=== PATIENT | male | born 1975 | race Caucasian/White ===

== ENCOUNTER 2018-12-23 21:29 | Observation (INO) | payer OTHER ==
[2018-12-23 21:37] VITALS: BMI 24.4
--- NOTE | 2018-12-23 22:01 | ED PDOC ---
Arrival/HPI - General Chief Complaint: Chest Pain Time Seen by Provider: 12/23/18 21:38 Historian: Patient - History of Present Illness Narrative History of Present Illness (Text): 12/23/18 21:58 A 43 year old male, whose past medical history includes hypertension, presents to the emergency department with a complaint of left sided chest discomfort intermittently for the past 3 days. He describes it as a tightness radiating d own the left shoulder arm at times. Patient is a positive smoker. Strong family history of heart disease. Patient denies fevers, chills, headache, dizziness, shortness of breath, dyspnea on exertion, cough, abdominal pain, nausea, vomiting, diarrhea, back pain, neck pain, urinary/bowel changes, or any other complaint. Time/Duration: Other (3 days) Symptom Onset: Sudden Symptom Course: Unchanged Activities at Onset: Rest Context: Home Past Medical History - Provider Review Nursing Documentation Reviewed: Yes - Psychiatric Hx Psychophysiologic Disorder: No Hx Substance Use: No - Anesthesia Hx Anesthesia: No Family/Social History - Physician Review Nursing Documentation Reviewed: Yes Family/Social History: No Known Family HX Smoking Status: Heavy Smoker > 10 Cigarettes Daily Hx Alcohol Use: No Hx Substance Use: No Allergies/Home Meds Allergies/Adverse Reactions: Allergies No Known Allergies Allergy (Verified 12/23/18 21:37) Home Medications: Home Meds Medication Instructions Recorded Confirmed No Known Home Med 12/23/18 12/23/18 Review of Systems - Physician Review All systems were reviewed & negative as marked: Yes - Review of Systems Constitutional: absent: Fevers Respiratory: absent: SOB, Cough Cardiovascular: Chest Pain. absent: GUERRERO Gastrointestinal: absent: Abdominal Pain, Stool Changes, Diarrhea, Nausea, Vomiting Genitourinary Male: absent: Urinary Output Changes Musculoskeletal: absent: Back Pain, Neck Pain Neurological: absent: Headache, Dizziness Physical Exam Vital Signs Reviewed: Yes Vital Signs Temp Pulse Resp BP Pulse Ox 12/23/18 21:39 98.2 F 75 19 151/87 H 100 Temperature: Afebrile Blood Pressure: Hypertensive Pulse: Regular Respiratory Rate: Normal Appearance: Positive for: Well-Appearing, Non-Toxic, Comfortable Pain Distress: None Mental Status: Positive for: Alert and Oriented X 3 - Systems Exam Head: Present: Atraumatic, Normocephalic Pupils: Present: PERRL Extroacular Muscles: Present: EOMI Conjunctiva: Present: Normal Mouth: Present: Moist Mucous Membranes Neck: Present: Normal Range of Motion Respiratory/Chest: Present: Clear to Auscultation, Good Air Exchange. No: Respiratory Distress, Accessory Muscle Use Cardiovascular: Present: Regular Rate and Rhythm, Normal S1, S2. No: Murmurs Abdomen: No: Tenderness, Distention, Peritoneal Signs Back: Present: Normal Inspection Upper Extremity: Present: Normal Inspection. No: Cyanosis, Edema Lower Extremity: Present: Normal Inspection. No: Edema Neurological: Present: GCS=15, CN II-XII Intact, Speech Normal Skin: Present: Warm, Dry, Normal Color. No: Rashes Psychiatric: Present: Alert, Oriented x 3, Normal Insight, Normal Concentration Medical Decision Making ED Course and Treatment: 12/23/18 22:00 Impression: A 43 year old male presents to the emergency department with a complaint of 3 day duration intermittent left sided chest pain. Plan: -- EKG -- Chest X-ray -- Labs -- Aspirin -- Reassess and disposition Prior Visits: Notes and results from previous visits were reviewed. Progress Notes: 12/23/18 22:02: EKG read and interpreted by me shows NSR at 74 BPM. Incomplete RBBB. LAHB. Septal infarct. Non- specific ST- T chanegs. 12/23/18 23:28: Chest X-ray read and interpreted by me shows no acute process. 12/23/18 23:32: Case discussed in detail with chief medical director and Dr. Pantoja (House Doctor) who accept the patient to the hospitalist's service. - Lab Interpretations I have reviewed the lab results: Yes - EKG Interpretation Interpreted by ED Physician: Yes Type: 12 lead EKG - Scribe Statement The provider has reviewed the documentation as recorded by the Scribe Adriana Morales Provider Scribe Attestation: All medical record entries made by the Scribe were at my direction and personally dictated by me. I have reviewed the chart and agree that the record accurately reflects my personal performance of the history, physical exam, medical decision making, and the department course for this patient. I have also personally directed, reviewed, and agree with the discharge instructions and disposition. Disposition/Present on Arrival - Present on Arrival Any Indicators Present on Arrival: No History of DVT/PE: No History of Uncontrolled Diabetes: No Urinary Catheter: No History of Decub. Ulcer: No History Surgical Site Infection Following: None - Disposition Have Diagnosis and Disposition been Completed?: Yes Diagnosis: Chest pain Disposition: HOSPITALIZED Disposition Time: 23:32 Patient Problems: Current Active Problems Problem Status Onset Chest pain Acute Condition: STABLE Discharge Instructions (ExitCare): Chest Pain (ED) Forms: [employer] ([place])
[2018-12-23 22:06] LABS: HEMOGLOBIN 14.1 g/dL (14.0-18.0); MEAN CELL VOLUME 92.2 fl (80.0-105.0); MEAN CORPUSCULAR HEMOGLOBIN 31.3 pg (25.0-35.0); MEAN PLATELET VOLUME 10.4 fl (7.0-11.0); RBC 4.5 10^6/uL (3.5-6.1); RED CELL DISTRIBUTION WIDTH 12.7 % (11.5-14.5); WHITE BLOOD COUNT 6.4 10^3/uL (4.5-11.0)
[2018-12-23 22:16] LABS: INR 1.12; PARTIAL THROMBOPLASTIN TIME 30.7 Seconds (26.9-38.3); PROTHROMBIN TIME 12.4 SECONDS (9.4-12.5)
[2018-12-23 22:32] LABS: TROPONIN I < 0.01 ng/mL
[2018-12-23 22:43] LABS: ALB/GLOB RATIO 1.5 (1.1-1.8); ALBUMIN 4.5 g/dL (3.0-4.8); ALT/SGPT 29 U/L (7-56); AST/SGOT 23 U/L (17-59); BLOOD UREA NITROGEN 16 mg/dL (7-21); CALCIUM 9.4 mg/dL (8.4-10.5); GFR NON-AFRICAN AMERICAN > 60
--- NOTE | 2018-12-23 23:45 | CP.PCM.HP ---
<CadenFrank - Last Filed: 12/24/18 01:54> History of Present Illness - History of Present Illness History of Present Illness: Frank Negrete, PGY1 H&P for Dr. Pantoja cc: "left sided cp x3 days" Patient is a 43 year old male, whose PMHx includes hypertension, presents to the emergency department with a complaint of left sided chest pain that occurred intermittently for the past 3 days. He describes chest pain as a tightness radiating down the left shoulder/arm and also the left leg. He said pain started while he was at rest in his house. He never experienced this pain before. Denies diaphoresis or sob during time of symptom onset. He also mentions that in the past he has had episodes of dizziness and felt like the room was spinning. At this time, he denies dizziness. He denies fever, chills, headache, sob, n/v/d, abdominal pain, bowel/bladder changes. [place] [facility] [place] used to follow up with a PMD for his HTN but was never on medication, he says he was recommended diet/exercise. A full 12 point ROS was conducted and unremarkable except as stated above. PMD: none PMHx: HTN PSHx: denies Meds: none Allergies: NKDA SocialHx: active smoker. Denies EtOH use. Denies illicit drug use. Patient is active and able to exercise without difficulty. FamHx: mother/father had HTN and some "heart problem". Denies early AL in family. Present on Admission - Present on Admission Any Indicators Present on Admission: No Review of Systems - Review of Systems All systems: reviewed and no additional remarkable complaints except (as per HPI) Past Patient History - Past Social History Smoking Status: Heavy Smoker > 10 Cigarettes Daily - PSYCHIATRIC Hx Psychophysiologic Disorder: No Hx Substance Use: No - SURGICAL HISTORY Hx Surgeries: No - ANESTHESIA Hx Anesthesia: No Meds Allergies/Adverse Reactions: Allergies Allergy/AdvReac Type Severity Reaction Status Date / Time No Known Allergies Allergy Verified 12/23/18 21:37 Physical Exam - Constitutional Appears: No Acute Distress - Head Exam Head Exam: ATRAUMATIC, NORMAL INSPECTION, NORMOCEPHALIC - Eye Exam Eye Exam: EOMI, Normal appearance - ENT Exam ENT Exam: Mucous Membranes Moist - Respiratory Exam Respiratory Exam: Clear to Auscultation Bilateral. absent: Accessory Muscle Use, Chest Wall Tenderness, Rales, Rhonchi, Wheezes - Cardiovascular Exam Cardiovascular Exam: RRR, +S1, +S2 - GI/Abdominal Exam GI & Abdominal Exam: Normal Bowel Sounds, Soft. absent: Firm, Guarding, Rebound, Rigid, Tenderness - Extremities Exam Extremities exam: Positive for: normal capillary refill, normal inspection, pedal pulses present - Back Exam Back exam: NORMAL INSPECTION - Neurological Exam Neurological exam: Alert, CN II-XII Intact, Normal Gait, Oriented x3, Reflexes Normal - Psychiatric Exam Psychiatric exam: Normal Affect, Normal Mood - Skin Skin Exam: Dry, Intact, Normal Color, Warm Results - Vital Signs Recent Vital Signs: Last Vital Signs Temp 98.2 F 12/23/18 21:39 Pulse 75 12/23/18 21:39 Resp 19 12/23/18 21:39 BP 151/87 H 12/23/18 21:39 Pulse Ox 100 12/23/18 21:39 - Labs Result Diagrams: 12/23/18 22:03 12/23/18 22:03 Labs: Laboratory Results - last 24 hr 12/23/18 12/23/18 12/23/18 22:03 22:03 22:03 WBC 6.4 RBC 4.50 Hgb 14.1 Hct 41.5 L MCV 92.2 MCH 31.3 MCHC 34.0 RDW 12.7 Plt Count 182 MPV 10.4 PT 12.4 INR 1.12 APTT 30.7 Sodium 143 Potassium 3.8 Chloride 107 Carbon Dioxide 28 Anion Gap 13 BUN 16 Creatinine 0.9 Est GFR ( Amer) > 60 Est GFR (Non-Af Amer) > 60 Random Glucose 124 H Calcium 9.4 Total Bilirubin 0.6 AST 23 ALT 29 Alkaline Phosphatase 51 Lactate Dehydrogenase 343 Total Creatine Kinase 82 Troponin I < 0.01 Total Protein 7.6 Albumin 4.5 Globulin 3.1 Albumin/Globulin Ratio 1.5 Assessment & Plan - Assessment and Plan (Free Text) Assessment: Patient is a 43 year old male, whose PMHx includes hypertension, presents to the emergency department with a complaint of left sided chest pain that occurred intermittently for the past 3 days. Plan: Chest Pain - r/o ACS - trop neg x1; serial troponins q6 - Hgb A1c, TSH, Lipid Panel - ASA 81mg PO daily - Serial EKG in the morning - Will also order echo to evaluate myocardium and LV function; patient endorsed episodes of dizziness in the past - CXR: no active disease - EKG: NSR at 74 bpm. Incomplete RBBB. Septal infarct. Non-specific ST/T wave changes. - Cardiology consulted (Dr. Georges) HTN - Not on home medication - Will monitor for now ppx: scd Diet: HHD Dispo: Monitor patient on remote tele. Further recs from cardio. Case was discussed and reviewed with Attending Physician, Dr. Pantoja <Lisbet Pantoja - Last Filed: 12/24/18 02:00> Results - Vital Signs Recent Vital Signs: Last Vital Signs Temp 98.2 F 12/24/18 00:50 Pulse 58 L 12/24/18 00:50 Resp 18 12/24/18 00:50 BP 122/72 12/24/18 00:50 Pulse Ox 98 12/24/18 00:50 - Labs Result Diagrams: 12/23/18 22:03 12/23/18 22:03 Labs: Laboratory Results - last 24 hr 12/23/18 12/23/18 12/23/18 22:03 22:03 22:03 WBC 6.4 RBC 4.50 Hgb 14.1 Hct 41.5 L MCV 92.2 MCH 31.3 MCHC 34.0 RDW 12.7 Plt Count 182 MPV 10.4 PT 12.4 INR 1.12 APTT 30.7 Sodium 143 Potassium 3.8 Chloride 107 Carbon Dioxide 28 Anion Gap 13 BUN 16 Creatinine 0.9 Est GFR ( Amer) > 60 Est GFR (Non-Af Amer) > 60 Random Glucose 124 H Calcium 9.4 Total Bilirubin 0.6 AST 23 ALT 29 Alkaline Phosphatase 51 Lactate Dehydrogenase 343 Total Creatine Kinase 82 Troponin I < 0.01 Total Protein 7.6 Albumin 4.5 Globulin 3.1 Albumin/Globulin Ratio 1.5 Attending/Attestation - Attestation I have personally seen and examined this patient.: Yes I have fully participated in the care of the patient.: Yes I have reviewed all pertinent clinical information: Yes Notes (Text): 12/24/18 01:59 Patient was seen when he was in cubicle # 6 in the ER. Medical record was reviewed. Agreewith history, physical examination, assessment and plan.
[2018-12-24 06:27] VITALS: PULSE 49
[2018-12-24 07:46] LABS: HEMOGLOBIN 13.4 g/dL (14.0-18.0); MEAN CELL VOLUME 92.1 fl (80.0-105.0); MEAN CORPUSCULAR HEMOGLOBIN 30.2 pg (25.0-35.0); MEAN CORPUSCULAR HGB CONC 32.8 g/dl (31.0-37.0); MEAN PLATELET VOLUME 10.7 fl (7.0-11.0); RBC 4.44 10^6/uL (3.5-6.1); RED CELL DISTRIBUTION WIDTH 12.8 % (11.5-14.5); WHITE BLOOD COUNT 7.8 10^3/uL (4.5-11.0)
[2018-12-24 08:06] LABS: ALB/GLOB RATIO 1.5 (1.1-1.8); ALT/SGPT 26 U/L (7-56); AST/SGOT 22 U/L (17-59); BLOOD UREA NITROGEN 20 mg/dL (7-21); CALCIUM 9.2 mg/dL (8.4-10.5); GFR NON-AFRICAN AMERICAN > 60; HDL CHOLESTEROL 30 mg/dL (29-60)
[2018-12-24 08:10] LABS: TROPONIN I < 0.01 ng/mL
[2018-12-24 08:13] LABS: LDL CHOLESTEROL 118 mg/dL (0-129)
[2018-12-24 09:38] VITALS: BP 112/73; RESP 18; TEMP 98; O2SAT 96
--- NOTE | 2018-12-24 10:49 | CP.PCM.DIS ---
<Romeo Padilla - Last Filed: 12/24/18 10:46> Provider - Provider Date of Admission: 12/23/18 23:30 Attending physician: Harsh Joyner MD Consults: 12/23/18 23:50 Physician Consult Routine Comment: Consulting Provider: Marcus Georges Consulting Physician: Marcus Georges Reason for Consult: cp - r/o acs Time Spent in preparation of Discharge (in minutes): 45 Hospital Course - Lab Results Lab Results: Most Recent Lab Values WBC 7.8 10^3/uL (4.5-11.0) D 12/24/18 07:00 RBC 4.44 10^6/uL (3.5-6.1) 12/24/18 07:00 Hgb 13.4 g/dL (14.0-18.0) L 12/24/18 07:00 Hct 40.9 % (42.0-52.0) L 12/24/18 07:00 MCV 92.1 fl (80.0-105.0) 12/24/18 07:00 MCH 30.2 pg (25.0-35.0) 12/24/18 07:00 MCHC 32.8 g/dl (31.0-37.0) 12/24/18 07:00 RDW 12.8 % (11.5-14.5) 12/24/18 07:00 Plt Count 176 10^3/uL (120.0-450.0) 12/24/18 07:00 MPV 10.7 fl (7.0-11.0) 12/24/18 07:00 PT 12.4 SECONDS (9.4-12.5) 12/23/18 22:03 INR 1.12 12/23/18 22:03 APTT 30.7 Seconds (26.9-38.3) 12/23/18 22:03 Sodium 141 mmol/L (132-148) 12/24/18 07:00 Potassium 3.6 mmol/L (3.6-5.0) 12/24/18 07:00 Chloride 105 mmol/L (98-107) 12/24/18 07:00 Carbon Dioxide 27 mmol/L (21-33) 12/24/18 07:00 Anion Gap 12 (10-20) 12/24/18 07:00 BUN 20 mg/dL (7-21) 12/24/18 07:00 Creatinine 0.8 mg/dl (0.8-1.5) 12/24/18 07:00 Est GFR ( Amer) > 60 12/24/18 07:00 Est GFR (Non-Af Amer) > 60 12/24/18 07:00 Random Glucose 113 mg/dL (70-110) H 12/24/18 07:00 Calcium 9.2 mg/dL (8.4-10.5) 12/24/18 07:00 Phosphorus 3.8 mg/dL (2.5-4.5) 12/24/18 07:00 Magnesium 2.2 mg/dL (1.7-2.2) 12/24/18 07:00 Total Bilirubin 0.3 mg/dL (0.2-1.3) 12/24/18 07:00 AST 22 U/L (17-59) 12/24/18 07:00 ALT 26 U/L (7-56) 12/24/18 07:00 Alkaline Phosphatase 47 U/L (38-126) 12/24/18 07:00 Lactate Dehydrogenase 343 U/L (333-699) 12/23/18 22:03 Total Creatine Kinase 82 U/L (35-230) 12/23/18 22:03 Troponin I < 0.01 ng/mL 12/24/18 07:00 Total Protein 6.8 g/dL (5.8-8.3) 12/24/18 07:00 Albumin 4.0 g/dL (3.0-4.8) 12/24/18 07:00 Globulin 2.8 gm/dL 12/24/18 07:00 Albumin/Globulin Ratio 1.5 (1.1-1.8) 12/24/18 07:00 Triglycerides 95 mg/dL (35-160) 12/24/18 07:00 Cholesterol 171 mg/dL (130-200) 12/24/18 07:00 LDL Cholesterol Direct 118 mg/dL (0-129) 12/24/18 07:00 HDL Cholesterol 30 mg/dL (29-60) 12/24/18 07:00 TSH 3rd Generation 1.31 mIU/mL (0.46-4.68) 12/24/18 07:00 - Hospital Course Hospital Course: 43 year old male with past medical history of HTN presented to the hospital for complaints of left sided chest pain for 3 days. Patient stated the pain was intermittent and radiating to her left arm. Patient was admitted with chest pain. Patient had troponins which were negative x2. Patient had a lipid panel that were within normal limits. Patient also had a TSH that was normal. Patient had an echocardiogram and will follow up with cardiology for results. Patient was evaluated by cardiology who recommended an outpatient stress test. Patient will follow up with cardiology within 1-2 weeks to schedule stress test. Patient was also recommended to register for [employer] insurance and come to the [facility] clinic. Patient advised to take Aspirin 81 mg daily. Patient counseled on smoking cessation. Discharge Exam - Head Exam Head Exam: ATRAUMATIC, NORMAL INSPECTION, NORMOCEPHALIC - Eye Exam Eye Exam: EOMI, Normal appearance - ENT Exam ENT Exam: Mucous Membranes Moist, Normal Exam - Respiratory Exam Respiratory Exam: NORMAL BREATHING PATTERN, UNREMARKABLE. absent: Rales, Rhonchi, Wheezes - Cardiovascular Exam Cardiovascular Exam: RRR, +S1, +S2 - GI/Abdominal Exam GI & Abdominal Exam: Normal Bowel Sounds, Soft. absent: Tenderness - Extremities Exam Extremities exam: normal inspection - Neurological Exam Neurological exam: Alert, CN II-XII Intact, Oriented x3 - Psychiatric Exam Psychiatric exam: Normal Affect, Normal Mood - Skin Skin Exam: Intact, Normal Color, Warm Discharge Plan - Follow Up Plan Condition: STABLE Disposition: HOME/ ROUTINE Additional Instructions: Patient will follow up outpatient with cardiology for a stress test and Echocardiogram results Please register for [employer] on ground floor of [facility] and call clinic for appointment at [phone] Please take Aspirin 81 mg daily Please return to hospital if symptoms worsen <Harsh Joyner - Last Filed: 12/24/18 11:54> Provider - Provider Date of Admission: 12/23/18 23:30 Attending physician: Harsh Joyner MD Consults: 12/23/18 23:50 Physician Consult Routine Comment: Consulting Provider: Marcus Georges Consulting Physician: Marcus Georges Reason for Consult: cp - r/o acs Hospital Course - Lab Results Lab Results: Most Recent Lab Values WBC 7.8 10^3/uL (4.5-11.0) D 12/24/18 07:00 RBC 4.44 10^6/uL (3.5-6.1) 12/24/18 07:00 Hgb 13.4 g/dL (14.0-18.0) L 12/24/18 07:00 Hct 40.9 % (42.0-52.0) L 12/24/18 07:00 MCV 92.1 fl (80.0-105.0) 12/24/18 07:00 MCH 30.2 pg (25.0-35.0) 12/24/18 07:00 MCHC 32.8 g/dl (31.0-37.0) 12/24/18 07:00 RDW 12.8 % (11.5-14.5) 12/24/18 07:00 Plt Count 176 10^3/uL (120.0-450.0) 12/24/18 07:00 MPV 10.7 fl (7.0-11.0) 12/24/18 07:00 PT 12.4 SECONDS (9.4-12.5) 12/23/18 22:03 INR 1.12 12/23/18 22:03 APTT 30.7 Seconds (26.9-38.3) 12/23/18 22:03 Sodium 141 mmol/L (132-148) 12/24/18 07:00 Potassium 3.6 mmol/L (3.6-5.0) 12/24/18 07:00 Chloride 105 mmol/L (98-107) 12/24/18 07:00 Carbon Dioxide 27 mmol/L (21-33) 12/24/18 07:00 Anion Gap 12 (10-20) 12/24/18 07:00 BUN 20 mg/dL (7-21) 12/24/18 07:00 Creatinine 0.8 mg/dl (0.8-1.5) 12/24/18 07:00 Est GFR ( Amer) > 60 12/24/18 07:00 Est GFR (Non-Af Amer) > 60 12/24/18 07:00 Random Glucose 113 mg/dL (70-110) H 12/24/18 07:00 Calcium 9.2 mg/dL (8.4-10.5) 12/24/18 07:00 Phosphorus 3.8 mg/dL (2.5-4.5) 12/24/18 07:00 Magnesium 2.2 mg/dL (1.7-2.2) 12/24/18 07:00 Total Bilirubin 0.3 mg/dL (0.2-1.3) 12/24/18 07:00 AST 22 U/L (17-59) 12/24/18 07:00 ALT 26 U/L (7-56) 12/24/18 07:00 Alkaline Phosphatase 47 U/L (38-126) 12/24/18 07:00 Lactate Dehydrogenase 343 U/L (333-699) 12/23/18 22:03 Total Creatine Kinase 82 U/L (35-230) 12/23/18 22:03 Troponin I < 0.01 ng/mL 12/24/18 07:00 Total Protein 6.8 g/dL (5.8-8.3) 12/24/18 07:00 Albumin 4.0 g/dL (3.0-4.8) 12/24/18 07:00 Globulin 2.8 gm/dL 12/24/18 07:00 Albumin/Globulin Ratio 1.5 (1.1-1.8) 12/24/18 07:00 Triglycerides 95 mg/dL (35-160) 12/24/18 07:00 Cholesterol 171 mg/dL (130-200) 12/24/18 07:00 LDL Cholesterol Direct 118 mg/dL (0-129) 12/24/18 07:00 HDL Cholesterol 30 mg/dL (29-60) 12/24/18 07:00 TSH 3rd Generation 1.31 mIU/mL (0.46-4.68) 12/24/18 07:00 Attending/Attestation - Attestation I have personally seen and examined this patient.: Yes I have fully participated in the care of the patient.: Yes I have reviewed all pertinent clinical information, including history, physical exam and plan: Yes Notes (Text): 12/24/18 11:48 43 year old male with past medical history of hypertension (not on any antihypertensives) and tobacco use who presented with complaint of chest pain. Serial cardiac enzymes were negative and ACS was ruled out. Echocardiogram was done today with pending read. Patient reports chest pain has resolved. He was seen by cardiology who cleared patient for discharge for outpatient stress test. Patient is discharged home to follow up at [facility] [place]. Follow up with cardiology for outpatient stress test. Monitor BP as outpatient. Counselled on low salt diet. Counselled on smoking cessation. Harsh Joyner MD Hospitalist.
--- NOTE | 2018-12-24 11:28 | RAD ---
Date of service: 12/23/2018 HISTORY: chest pain COMPARISON: No prior. TECHNIQUE: 1 view obtained. FINDINGS: LUNGS: No active pulmonary disease. PLEURA: No significant pleural effusion identified, no pneumothorax apparent. CARDIOVASCULAR: No aortic atherosclerotic calcifications present. Cardiomediastinal silhouette prominent. OSSEOUS STRUCTURES: No significant abnormalities. VISUALIZED UPPER ABDOMEN: Normal. OTHER FINDINGS: None. IMPRESSION: No active disease.
--- NOTE | 2018-12-24 11:52 | CARD ---
APPROVED REPORT Date of service: 12/23/2018 EKG Measurement Heart [id number] <Conclusion> Normal sinus rhythm Incomplete right bundle branch block Left anterior fascicular block Septal infarct, age undetermined Abnormal ECG
--- NOTE | 2018-12-24 12:15 | CARD ---
APPROVED REPORT Date of service: 12/24/2018 EXAM: Two-dimensional and M-mode echocardiogram with Doppler and color Doppler. INDICATION Chest Pain PRIOR EPISODES OF DIZZINESS 2D DIMENSIONS Left Atrium (2D)4.0 (1.6-4.0cm)IVSd0.9 (0.7-1.1cm) LVDd5.4 (3.9-5.9cm)PWd1.2 (0.7-1.1cm) LVDs3.5 (2.5-4.0cm)FS (%) 34.1 % LVEF (%)62.6 (>50%) M-Mode DIMENSIONS Aortic Root3.50 (2.2-3.7cm)Aortic Cusp Exc.2.10 (1.5-2.0cm) Aortic Valve AoV Peak Cmmxbweh988.0cm/Saritha Peak GR.9mmHg Mitral Valve MV E Glwvfihk31.3cm/sMV A Vbouucbb51.6cm/sE/A ratio2.3 TDI E/Lateral E'0.0E/Medial E'0.0 Pulmonary Valve PV Peak Eddrlqlq693.0cm/sPV Peak Grad.4mmHg Tricuspid Valve TR Peak [id number]/sRAP [id number] Peak Gr.16mmHg [id number] LEFT VENTRICLE The left ventricle is normal size. There is borderline concentric left ventricular hypertrophy. The left ventricular function is normal.EF-60-65% There is normal LV segmental wall motion. The left ventricular diastolic function is normal. No left ventricle thrombus noted on this study. There is no ventricular septal defect visualized. There is no left ventricular aneurysm. There is no mass noted in the left ventricle. RIGHT VENTRICLE The right ventricle is normal size. There is normal right ventricular wall thickness. The right ventricular systolic function is normal. ATRIA The left atrium is borderline dilated. The right atrium is borderline dilated. The interatrial septum is intact with no evidence for an atrial septal defect. AORTIC VALVE The aortic valve is normal in structure. No aortic regurgitation is present. There is no aortic valvular stenosis. There is no aortic valvular vegetation. MITRAL VALVE The mitral valve is thickened but opens well. Mitral regurgitation is trace to mild. There is no mitral valve stenosis. There is no evidence of mitral valve prolapse. TRICUSPID VALVE The tricuspid valve leaflets are thickened , but open well. There is trace tricuspid regurgitation.RVSP-26 mmof hg. There is no tricuspid valve stenosis. There is no tricuspid valve prolapse or vegetation. PULMONIC VALVE The pulmonary valve is normal in structure. There is trace pulmonic valvular regurgitation. There is no pulmonic valvular stenosis. GREAT VESSELS The aortic root is normal in size. The ascending aorta is normal in size. The pulmonary artery is normal. The IVC is normal in size and collapses >50% with inspiration. PERICARDIAL EFFUSION There is no pleural effusion. There is no pericardial effusion. <Conclusion> The left ventricle is normal size. There is borderline concentric left ventricular hypertrophy. The left ventricular function is normal.EF-60-65% Mitral regurgitation is trace to mild. There is trace tricuspid regurgitation.RVSP-26 mmof hg. There is trace pulmonic valvular regurgitation. The IVC is normal in size and collapses >50% with inspiration. No vegetation or thrombus noted.
--- NOTE | 2018-12-25 01:54 | CON ---
DATE: 12/24/2018 REASON FOR DICTATION: Covering Dr. Georges. REASON FOR CONSULTATION: Cardiac evaluation, admitted with chest pain. BRIEF CLINICAL HISTORY: This is a 43-year-old male with past medical history significant for hypertension, came in with complaint of chest pain, left sided, increases on coughing. Denies any episode of dyspnea on exertion. No chest pain on exertion or diaphoresis. PAST MEDICAL HISTORY: Significant for hypertension. FAMILY HISTORY: Significant for coronary artery disease with no intervention done, only high blood pressure. No history of stent or heart attack or coronary artery bypass surgery in the family. PAST SURGICAL HISTORY: Nothing significant. CURRENT MEDICATIONS: At home, the patient is taking baby aspirin. Though he claims to have high blood pressure, but he does not take any high blood pressure medication. ALLERGIES: NO KNOWN DRUG ALLERGY. SOCIAL HISTORY: Active smoker. Denies any EtOH abuse. Denies any drug abuse. REVIEW OF SYSTEMS: As per HPI. PHYSICAL EXAMINATION: VITAL SIGNS: Temperature, afebrile. Heart rate 49, blood pressure 112/73. HEENT: PERRLA. Extraocular muscles intact. NECK: Supple. No carotid bruit. No thyromegaly. CHEST: Clear to auscultation. HEART: S1 and S2, regular. ABDOMEN: Soft. EXTREMITIES: Clubbing and cyanosis negative. LABORATORY DATA: EKG shows sinus bradycardia, heart rate of 45, incomplete right bundle-branch block, left anterior hemiblock. Blood workup as follows: WBC 7.8, hemoglobin 13.5, hematocrit 40.9, platelet count 176. Chemistry shows sodium 141, potassium 3.6, chloride 105, carbon dioxide 27, anion gap of 12, BUN 20, creatinine 0.8, troponin 0.01. IMPRESSION: A 43-year-old male with past medical history significant for hypertension but not on any medication, no significant risk factors except being a male, admitted with atypical chest pain. So far, troponin remains negative. RECOMMENDATIONS: We will get one more set of troponin. Agree with lipid profile, TSH, and echo. If remains negative, the patient is okay to be discharged. Follow up with outpatient stress test. Discussed with , the team taking care of the patient. Agree to do another troponin at 12 p.m. If the patient remains, we will transfer care to Dr. Georges on [place]. We will schedule a stress test in 2 weeks. Zen Suarez MD
--- NOTE | 2018-12-28 13:25 | CARD ---
APPROVED REPORT Date of service: 12/24/2018 EKG Measurement Heart [id number] <Conclusion> Marked sinus bradycardia Left axis deviation Incomplete right bundle branch block Abnormal ECG
== END 2018-12-24 14:25 | disposition home or self-care (01) ==
LOC: ED 21:29 → ERH 23:30 → 3RNO 12-24 00:47
PROVIDERS: ADMIT Internal Medicine; ATTEND Internal Medicine
DX: R07.89 Other chest pain (principal); I10 Essential (primary) hypertension; F17.210 Nicotine dependence, cigarettes, uncomplicated; Z82.49 Family history of ischemic heart disease and other diseases of the circulatory system
CPT/HCPCS: 36415; 71045; 80053; 80061; 82550; 83036; 83615; 83735; 84100; 84443; 84484; 85027; 85610; 85730; 93005; 93306; 99285; G0378